=== PATIENT | male | born 1955 | race Caucasian/White ===

== ENCOUNTER 2020-06-21 19:52 | Emergency (ER) | payer BC ==
[2020-06-21 20:06] VITALS: TEMP 97.9; BMI 29.5
[2020-06-21] MEDS ORDERED: SODIUM CHLORIDE 0.9% 500 ML INFUS.BAG IV ONE (20:09)
[2020-06-21 20:29] LABS: BASO % 1.1 % (0-2.0); EOS % 2.8 % (0-4.5); HEMATOCRIT 46.8 % (35.4-49); HEMOGLOBIN 16.1 GM/dl (11.7-16.9); LYMPH % 28.8 % (8-40); MCH 30.8 pg (25.7-33.7); MCHC 34.3 g/dl (32.0-35.9); MEAN CELL VOLUME 89.8 fl (80-96); MEAN PLT VOLUME 9.3 fl (7.5-11.1); MONO % 5.4 % (3.8-10.2); NEUT % 61.9 % (42.8-82.8); PLATELET COUNT 245 K/MM3 (134-434); RBC 5.21 M/mm3 (4.00-5.60); RDW 12.6 % (11.9-15.9); WHITE BLOOD COUNT 9.9 K/mm3 (4.0-10.8)
--- NOTE | 2020-06-21 20:31 | PDOC ---
Documentation entered by Arturo Combs SCRIBE, acting as scribe for Pham Morales MD. Pham Morales MD: This documentation has been prepared by the Gwendolyn matias inArturo SCRIBE, under my direction and personally reviewed by me in its entirety. I confirm that the documentation accurately reflects all work, treatment, procedures, and medical decision making performed by me. History of Present Illness - General Chief Complaint: Urinary Problem Stated Complaint: URINARY PAIN Time Seen by Provider: 06/21/20 19:57 History Source: Patient Exam Limitations: No Limitations - History of Present Illness Initial Comments: 06/21/20 20:20 The patient is a 64 year old male with a significant past medical history of Hep C, back pain, hiatal hernia, lung nodules, and previous smoking and drug use who presents to the ED for evaluation of acute onset of lower abdominal pain x 1 day that began yesterday. The patient endorses intermittent pressure with urination, suprapubic pain extending to the LLQ, a/w frequency and urgency. Pt states he echeverria s had intermittent suprapubic pain and urinary symptoms x 1 year for which he follows with a urologist. The patient endorses taking 1000mg of ibuprofen 5 hours ago to no relief. He currently denies any pain for the past 30 minutes. He notes having an appointment scheduled tomorrow with his urologist Dr Crabtree, but came to the ED for this new abdominal pain. Denies discharge or testicular pain. Denies fever, chills, chest pain, SOB, palpitation, dizziness, weakness, N, V, D, bowel problems, hematuria, dysuria, focal weakness/paresthesias, leg swelling/pain, rash. No sick contacts or travel. Allergies: None Past Medical History/PSH: Hep C, back pain, lung nodules Social history: Lives with family. No ETOH use. Previous smoking (quit 10 years ago) and drug use (quit 28 years ago). Meds: as documented in EMR Family history: noncontributory Urologist: Dr. Crabtree 06/21/20 20:24 06/21/20 21:09 Past History - Medical History Allergies/Adverse Reactions: Allergies Allergy/AdvReac Type Severity Reaction Status Date / Time No Known Allergies Allergy Verified 06/21/20 19:57 Home Medications: Ambulatory Orders Naproxen 1,000 mg PO BID PRN 06/21/20 Sulfamethoxazole/Trimethoprim [Bactrim Ds Tablet] 1 each PO BID #14 tablet 06/21/20 COPD: No GI Disorders: Yes (SMALL HIATAL HERNIA) Disorders: Yes Lung CA: No (LUNG NODULE LLL) - Psycho-Social/Smoking History Smoking History: Former smoker Have you smoked in the past 12 months: No If you are a former smoker, when did you quit?: 2009 Information on smoking cessation initiated: No - Substance Abuse Hx (Audit-C & DAST Scrn) How often the patient has a drink containing alcohol: Never Score: In Men: 4 or > Positive; In Women: 3 or > Positive: 0 Screen Result (Pos requires Nsg. Audit-10AR): Negative In the last yr the pt used illegal drug/Rx for NonMed reason: No Score: Yes response is considered Positive: 0 Screen Result (Positive result requires Nsg. DAST-10): Negative Review of Systems - Review of Systems Able to Perform ROS?: Yes Comments:: 06/21/20 20:20 Constitutional: no fevers or chills. No weakness HEENT: no headache or dizziness. No congestion. CVS: no cp or syncope. Resp: no sob. No cough. Gastrointestinal: +abdominal pain no nausea, vomiting, diarrhea. Genitourinary: +pressure with urination, suprapubic pain, frequency, urgency no hematuria. MUSCULOSKELETAL: No joint pain and swelling. No neck pain. no back or flank pain. SKIN: no redness or skin changes, no discharge, no rash. No wounds. Hematologic: no easy bruising/bleeding. NEUROLOGIC: No headache, dizziness, LOC or altered mental status. No weakness, numbness or tingling. Psych: no anxiety or depression Allergic/Immunologic: no allergies All other systems reviewed and negative, or as documented in HPI. 06/21/20 20:26 All Other Systems: Reviewed and Negative *Physical Exam - Vital Signs Last Vital Signs Temp Pulse Resp BP Pulse Ox 97.9 F 56 L 18 168/90 95 06/21/20 19:56 06/21/20 19:56 06/21/20 19:56 06/21/20 19:56 06/21/20 19:56 - Physical Exam 06/21/20 20:20 General: Well appearing, awake and alert, NAD. HEENT: NCAT, PERRL, EOMI, clear conjunctiva, anicteric, moist mucus membranes, clear oropharynx, no oral lesions.. Neck: neck supple, FROM Resp: CTAB, normal and even respirations, no respiratory distress CVS: RRR, no murmurs, 2+ peripheral pulses throughout, no peripheral edema Abdomen: +mild left lower quadrant tenderness. soft, nondistended no rebound or guarding. No CVAT. : normal external testicular exam, normal lie, no tenderness, no swelling. no palp hernia w/valsalva Back: nontender, normal inspection and ROM MSK: no edema, DAVE x4, ROM intact. No clubbing or cyanosis. normal bulk and tone. Extremities: no calf tenderness Neuro: alert, oriented appropriately; no focal neurologic deficits Psych: Calm and cooperative Skin: warm and well perfused, cap refill <2 sec, normal color 06/21/20 20:27 ED Treatment Course - LABORATORY CBC & Chemistry Diagram: 06/21/20 20:20 06/21/20 20:20 Medical Decision Making - Medical Decision Making 06/21/20 20:27 Vital Signs Temp Pulse Resp BP Pulse Ox 97.9 F 56 L 18 168/90 95 06/21/20 19:56 06/21/20 19:56 06/21/20 19:56 06/21/20 19:56 06/21/20 19:56 vitals reviewed wnl ddx. uti, pyelo, infection, kidney stone, mass, diverticulitis. no rlq pain normal testicular/scrotal exam, doubt torsion/orchitis/epididymitis. no analgesia at this time, he state it is only 1/10 and has since improved with his pain over the past 30 minutes labs and lytes UA with blood, no infection ct spiral exam to eval for stone. 06/21/20 20:59 labs and lytes wnl, normal cr function normal wbc ct normal h/h small blood, wbcs 5-10, can follow up on urine culture CT scan without acute pathology noted, there is mild hepatomegaly with fatty infiltration no evidence of small bowel obstruction. There is mild fullness of the left pararenal pelvis/calyceal system without evidence of hydroureter or an obstructing stone. Distended urinary bladder without bladder wall thickening or stone visualized. There are diverticuli without evidence of diverticulitis, small fat-containing right inguinal hernia. No appendicitis. Pt to be discharged in stable condition. Patient made aware of clinical impression, treatment recommendations and disposition plan, return precautions discussed (including but not limited to new or persistent/worsening symptoms, pain, fevers, or signs of infection, chest pain, respiratory distress, inability to tolerate oral intake, dehydration, syncope, or neurologic changes). Follow up with PMD and/or urology specialist as recommended, follow up information provided, take medications as instructed for duration of time. continue with supportive care, avoid triggers and precipitants. All questions answered to patient's satisfaction and expressed understanding and comfort with this. At the time of discharge, the patient is alert, clinically improved, tolerating po and verbalizes understanding of instructions, satisfied with the care received and felt comfortable with the plan. Patient does not suffer from an acute life- threatening medical condition at this time and is safe for outpatient follow- up. 06/21/20 22:21 06/21/20 22:28 Discharge - Discharge Information Problems reviewed: Yes Clinical Impression/Diagnosis: UTI (urinary tract infection) Qualifiers: Urinary tract infection type: site unspecified Hematuria presence: with hematuria Qualified Code(s): N39.0 - Urinary tract infection, site not specified Condition: Good Disposition: HOME - Admission No - Additional Discharge Information Prescriptions: Sulfamethoxazole/Trimethoprim [Bactrim Ds Tablet] 1 each PO BID #14 tablet - Follow up/Referral Referrals: Mingo Crabtree [Primary Care Provider] - Kaushal Silvestre [Non Staff, Medical] - - Patient Discharge Instructions Patient Printed Discharge Instructions: DI for Urinary Tract Infection (UTI), DI for Abdominal Pain-Adult Additional Instructions: 1) Please follow-up with your primary care doctor or urologist in the next 1-2 days. Please call tomorrow for for any urgent issues. see Dr Steele tomorrow as scheduled you may have a urinary tract infection based on your results, follow up on your urine culture 2) You were given a copy of the tests performed today. Please bring the results with you and review them with your primary care doctor. Your laboratory / imaging results were normal, 3) If you have any worsening of symptoms or any other concerns please return to the ED immediately. Return if worsening symptoms including fevers, headache, vomiting, visual or hearing disturbances, abdominal pain, bloody stools or urination, chest pain, shortness of breath, syncope, dehydration, inability to take things by mouth/vomiting, altered mental status, or worsening concerning symptoms. 4) Please continue taking your home medications as directed. your medications on discharge include Bactrim (antibiotics) twice a day x 1 week . side effects may include upset stomach, abdominal pain, vomiting, or diarrhea. do not drink alcohol with your medications. Stay well hydrated and rest adequately. Make an appointment. If you cannot follow-up with your primary care doctor please return to the ED - Post Discharge Activity
[2020-06-21 20:41] LABS: ALBUMIN 4.3 g/dl (3.4-5.0); BILIRUBIN,TOTAL 1.2 mg/dl (0.2-1); CALCIUM 9.1 mg/dl (8.5-10); CREATININE 1.1 mg/dl (0.55-1.3); POTASSIUM 3.9 mmol/L (3.5-5.1); TOT PROT 7.2 g/dl (6.4-8.2)
[2020-06-21 21:52] VITALS: BP 155/92; PULSE 58
== END 2020-06-21 22:56 | disposition home or self-care (01) ==
LOC: FER 19:52
PROC: 3E0337Z Introduction of Electrolytic and Water Balance Substance into Peripheral Vein, Percutaneous Approach (ICD-10-PCS; principal; 2020-06-21)
DX: N39.0 Urinary tract infection, site not specified (principal)
CPT/HCPCS: 36415; 74176-TC; 80053; 81003; 81015; 85025; 87086; 99285-25